=== PATIENT | female | born 1990 | race Caucasian/White ===

== ENCOUNTER 2016-03-24 16:10 | Emergency (ER) | payer BC, MEDICAID ==
[~2016-03-24] VITALS: Ht 160 cm; Wt 76.7 kg
[~2016-03-24 16:10] MED LIST: HYDROCHLOROTH12.5 M2 ORAL; HYDROCHLOROTHIA25 MG ORAL; LEVOTHYROXINE50 MCG ORAL
[2016-03-24] MEDS ORDERED: LOSARTAN POTASS25 MG ORAL (16:27)
[2016-03-24] MEDS ORDERED: KEPPRA XR500 MG ORAL (16:27)
[2016-03-24 16:30] VITALS: BP 137/86
[2016-03-24] MEDS ORDERED: AMOXICILLIN500 MG ORAL (16:42)
[2016-03-24 16:44] VITALS: BP 137/86
--- NOTE | 2016-03-24 17:31 | Emergency Room Report ---
History of Present Illness General Chief Complaint: Earache Present Illness HPI The patient is a 25-year-old female presenting with right ear pain which began 5 days prior. The pain is described as a 6/10 dull ache and does not radiate. The patient denies any sick contacts or recent travel. No known provoking or relieving factors. Patient denies F, C, N, V, MATA, cough, sore throat Allergies: Coded Allergies: No Known Allergies (Unverified , 05/01/12) Patient History Past Medical History: see triage record Pertinent Family History: none Reviewed Nursing Documentation: PMH: Agreed, PSxH: Agreed Nursing Documentation-PMH Hx Hypertension: Yes Hx Seizures: Yes Review of Systems All Other Systems: negative except mentioned in HPI Physical Exam Vital Signs Date Time Temp Pulse Resp B/P Pulse Ox O2 Delivery O2 Flow Rate FiO2 03/24/16 16:24 97.9 95 20 137/86 98 Room Air Sp02 EP Interpretation: reviewed, normal General Appearance: no apparent distress, alert, GCS 15, non-toxic Head: normocephalic, atraumatic Eyes: bilateral eye PERRL, bilateral eye normal inspection ENT: hearing grossly normal, normal pharynx, no angioedema, normal voice, uvula midline, moist mucus membranes, other - R ear TM erythematous Neck: full range of motion, supple/symm/no masses Respiratory: chest non-tender, lungs clear, normal breath sounds, no wheezing, speaking full sentences Cardiovascular #1: regular rate, rhythm, no edema Neurologic: alert, oriented x3, responsive, motor strength/tone normal, sensory intact, speech normal Psychiatric: judgement/insight normal, memory normal, mood/affect normal, no suicidal/homicidal ideation Skin: normal color, no rash, warm/dry, well hydrated Lymphatic: no adenopathy Medical Decision Making PA Attestation Dr. Castle is my supervising physician. Patient management was discussed with my supervising physician Diagnostic Impression: Primary Impression: Otitis media ER Course The patient is a 25-year-old female presenting with right ear pain which began 5 days prior. Differential diagnosis include but not limited to otitis externa, otitis media, mastoiditis, sinusitis, pharyngitis PE: Vitals WNL. NAD HEENT: Right ear tympanic membrane is erythematous. Otherwise unremarkable. The patient will be discharged with a prescription for amoxicillin. ER precautions are given Last Vital Signs Date Time Temp Pulse Resp B/P Pulse Ox O2 Delivery O2 Flow Rate FiO2 03/24/16 16:44 97.9 95 20 137/86 98 Room Air Status: improved Disposition: HOME, SELF-CARE Condition: Improved Scripts Amoxicillin* (AMOXIL*) 500 Mg Capsule 500 MG ORAL Q12HR, #20 CAP Prov: DANE BUCHANAN 03/24/16 Referrals: NOT CHOSEN IPA/MD,REFERRING (PCP) Patient Instructions: Otitis Media, Adult Additional Instructions: I discussed my findings with the patient. All questions and concerns have been answered. Treatment and medication compliance have been addressed. I advised the patient that they need to follow up with PMD in 3-5 days. Return to ED if pain remains or worsens, cough worsens or remains, you notice blood in your sputum, you notice wheezing, you experience a fever, or if needed for any reason. Patient verbalized understanding of discharge instructions. DANE BUCHANAN Mar 24, 2016 17:31
== END 2016-03-24 17:00 | disposition home or self-care (01) ==
LOC: EMR 16:25
DX: H66.91 Otitis media, unspecified, right ear (principal); I10 Essential (primary) hypertension
CPT/HCPCS: 99282